=== PATIENT | male | born 1965 | race Caucasian/White ===

== ENCOUNTER → 2020-11-30 | Day surgery (SDC) | payer OTHER ==
[~2020-11-30] MED LIST: CYMBALTA60 MG PO; GLUCOPHAGE850 MG PO; HYDROXYZINE HCL50 MG PO; LOVAZA1 GM PO; MINIPRESS5 MG PO; PERCOCET 5-3251 EACH PO; SINGULAIR10 MG PO; TOPROL XL 50 MG50 MG PO; TRAZODONE HCL50 MG PO; VITAMIN B6 PO; VITAMIN D3 PO; ZYRTEC10 MG PO
[2020-11-30 06:57] LABS: ALBUMIN 3.4 g/dL (3.4-5.0); BILIRUBIN - TOTAL 0.3 mg/dL (0.2-1.0); BUN/CREAT RATIO (CALC) 22.8 RATIO; CREATININE 0.79 mg/dL (0.67-1.17); GLOBULIN (CALCULATION) 4.4 g/dL; POTASSIUM 3.9 mmol/L (3.5-5.1); TOTAL PROTEIN 7.8 g/dL (6.4-8.2)
[2020-11-30 07:05] LABS: HCT 40.2 % (42.0-52.0); HGB 13.2 g/dl (13.2-18.0); MCH 30.5 pg (25.0-31.0); MCHC 32.8 g/dL (32.0-36.0); MCV 92.8 fL (78.0-100.0); MPV 8.9 fL (6.0-9.5); RBC 4.33 M/uL (4.70-6.00); RDW 13.2 % (11.5-14.0); WBC 11.8 K/uL (4.0-10.5)
== END | disposition home or self-care (01) ==
LOC: FAS 05:49
PROVIDERS: Orthopaedic Surgery
DX: G56.03 Carpal tunnel syndrome, bilateral upper limbs (principal); E11.9 Type 2 diabetes mellitus without complications; Z20.822 Contact with and (suspected) exposure to COVID-19; Z88.0 Allergy status to penicillin; Z88.8 Allergy status to other drugs, medicaments and biological substances; Z98.890 Other specified postprocedural states
CPT/HCPCS: 36415; 80053; 82962; 93005; J1100; J1885; J2250; J2405; J2704; J3010; J7120

== ENCOUNTER → 2021-09-27 | Day surgery (SDC) | payer OTHER ==
[~2021-09-27] VITALS: Ht 167.6 cm; Wt 122.5 kg
[2021-09-27 06:47] LABS: HCT 42.2 % (42.0-52.0); HGB 13.9 g/dl (13.2-18.0); MCH 30.7 pg (25.0-31.0); MCHC 32.9 g/dL (32.0-36.0); MCV 93.2 fL (78.0-100.0); RBC 4.53 M/uL (4.70-6.00); RDW 12.6 % (11.5-14.0); WBC 10.3 K/uL (4.0-10.5)
[2021-09-27 07:25] LABS: ALBUMIN 3.5 g/dL (3.4-5.0); BILIRUBIN - TOTAL 0.3 mg/dL (0.2-1.0); BUN/CREAT RATIO (CALC) 15.8 RATIO; CREATININE 0.76 mg/dL (0.67-1.17); GLOBULIN (CALCULATION) 4.1 g/dL; POTASSIUM 4.3 mmol/L (3.5-5.1); TOTAL PROTEIN 7.6 g/dL (6.4-8.2)
== END | disposition home or self-care (01) ==
LOC: FAS 06:01
PROVIDERS: Orthopaedic Surgery
DX: G56.01 Carpal tunnel syndrome, right upper limb (principal)
CPT/HCPCS: 36415; 80053; 93005; J2250; J2704; J3010; J7120